=== PATIENT | female | born 1965 | race Caucasian/White ===

== ENCOUNTER 2017-06-12 14:11 | Outpatient (CLI) | payer BC ==
[2017-06-12 15:03] LABS: Hemoglobin 13.6 g/dL (12.0-16.0); Mean Corpuscular HGB CONC 33.5 g/dL (32.0-36.0); Mean Corpuscular Volume 89.5 fl (81.0-99.0); Mean Platelet Volume 7.6 fL (7.4-10.4); Platelet Count 286 thou/uL (130-400); RBC Distribution Width 11.3 % (11.5-14.5); Red Blood Cell (RBC) Count 4.54 mill/uL (4.20-5.40)
[2017-06-12 15:21] LABS: ALT (SGPT) 33 U/L (8-55); AST (SGOT) 23 U/L (5-34); Albumin 4.4 g/dL (3.5-5.0); Alkaline Phosphatase 41 U/L (40-150); Anion Gap 13 mmol/L (10-20); BUN (Urea Nitrogen) 17 mg/dL (9.8-20.1); Bilirubin, Total 1.7 mg/dL (0.2-1.2); Calc. Creatinine Clearance 0 mL/min (70-130); Calcium 9.5 mg/dL (7.8-10.44); Carbon Dioxide 25 mmol/L (22-29); Chloride 103 mmol/L (98-107); Estimated GFR-MDRD 88; Globulin 2.8 g/dL (2.4-3.5); Glucose 98 mg/dL (70-105); Protein, Total 7.2 g/dL (6.0-8.3); Sodium 137 mmol/L (136-145)
--- NOTE | 2017-06-12 20:27 | EKG ---
Test Reason : Blood Pressure : / mmHG Vent. Rate : 074 BPM Atrial Rate : 074 BPM P-R Int : 132 ms QRS Dur : 088 ms QT Int : 414 ms P-R-T Axes : 019 080 040 degrees QTc Int : 459 ms Poor data quality, interpretation may be adversely affected Normal sinus rhythm Normal ECG When compared with ECG of 03-FEB-2014 07:52, Questionable change in QRS axis T wave amplitude has decreased in Anterior leads Confirmed by AVERY EVANS, SMaría ([id number]) on 06/12/2017 8:27:03 PM Referred By: AMY Confirmed By:DR. Ana VARELA MD
== END 2017-06-12 14:12 | disposition home or self-care (01) ==
LOC: LABBT 14:11
PROVIDERS: ATTEND Neurological Surgery
DX: Z01.818 Encounter for other preprocedural examination (principal); M54.12 Radiculopathy, cervical region
CPT/HCPCS: 80053; 85027; 93005; 93010

== ENCOUNTER 2017-06-14 06:54 | Day surgery (SDC) | payer BC ==
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
[2017-06-12 14:39] VITALS: BMI 40.7
[2017-06-14] MEDS ORDERED: Midazolam HCl 2 mg/2 ml Vial ONE (07:00)
[2017-06-14] MEDS ORDERED: Fentanyl 250 MCG/5 ML VIAL ONE ×2 (07:00→09:38)
[2017-06-14] MEDS ORDERED: Thrombin 5000 UNITS/5 ML VIAL ONE (09:10)
[2017-06-14] MEDS ORDERED: Sodium Chloride 0.9% 10 ML ONE (09:10)
[2017-06-14] MEDS ORDERED: Clindamycin/D5W 900 mg/50 ml Premix Bag ONE (09:20)
[2017-06-14] MEDS ORDERED: CEFAZOLIN/Water 2 GM/20 ML SYRINGE ONE (09:22)
--- NOTE | 2017-06-14 10:42 | OP ---
DATE OF PROCEDURE: 06/14/2017 SURGEON: Kaveh Lantigua M.D. ENTRY LEVEL ACCOUNT EXECUTIVE: DASHAWN Carrera PROCEDURE: Anterior discectomy C5-6, interbody arthrodesis, intravertebral biomechanical device, loc al morselized autograft, demineralized bone matrix, anterior titanium instrumentation C5-6. PROCEDURE IN DETAIL: The patient was brought to the operating room and intubated. She was positione d supine, head in modest extension on a gel-filled donut. Incision was made in the right precervical area and dissecting medial to the sternocleidomastoid muscle we identified the anterior cervical spi ne and our level was confirmed by x-ray. We debrided anterior osteophytes, placed distraction across C5-6 and completely decompressed the intravertebral disc. The bony endplates were then decorticated for the purpose of arthrodesis and appropriately sized intravertebral biomechanical PEEK device was brought into the field, filled with demineralized bone matrix, local morselized autograft, and tapped into place securely at C5-6. Next, an anterior plate was brought into the field and secured to C5, and C6 using two 14 mm screws at each level. The wound was then extensively irrigated, immaculate he mostasis was secured, and the wound was closed in anatomic layers.
[2017-06-14] MEDS ORDERED: Fentanyl 100 MCG/2 ML VIAL ONE ×3 (11:00→11:33)
[2017-06-14] MEDS ORDERED: Ondansetron HCl/PF 4 MG/2 ML Vial ONE (11:56)
[2017-06-14] MEDS ORDERED: Promethazine HCl 25 MG/ML VIAL ONE (13:16)
== END 2017-06-14 14:40 | disposition home or self-care (01) ==
LOC: SDC 06:54
PROVIDERS: ATTEND Neurological Surgery
PROC: 0RB30ZZ Excision of Cervical Vertebral Disc, Open Approach (ICD-10-PCS; principal; 2017-06-14)
PROC: 0RG10A0 Fusion of Cervical Vertebral Joint with Interbody Fusion Device, Anterior Approach, Anterior Column, Open Approach (ICD-10-PCS; principal; 2017-06-14)
DX: M47.22 Other spondylosis with radiculopathy, cervical region (principal); M40.202 Unspecified kyphosis, cervical region; J32.0 Chronic maxillary sinusitis; Z79.899 Other long term (current) drug therapy; Z88.5 Allergy status to narcotic agent; Z88.8 Allergy status to other drugs, medicaments and biological substances
CPT/HCPCS: 76001; 96374; A4216; C1713; C1776; J2250; J2405; J2550; J3010; J3490

== ENCOUNTER 2017-07-02 15:57 | Outpatient (CLI) | payer BC ==
--- NOTE | 2017-07-02 16:43 | RAD ---
THREE VIEWS CERVICAL SPINE 07/02/17 COMPARISON: None. HISTORY: Neck surgery. Followup exam. FINDINGS: Three views of the cervical spine shows the patient to be status post anterior fusion of C5 and C6 wi th a plate and screws. A disc spacer is seen in the intervening disc space. No prevertebral soft tiss ue swelling is seen. The vertebral bodies demonstrate normal alignment without subluxation. IMPRESSION: Postsurgical changes of the cervical spine without evidence of complication. POS: [facility]
== END 2017-07-02 15:58 | disposition home or self-care (01) ==
LOC: TBSIIMAG 15:57
PROVIDERS: ATTEND Neurological Surgery
DX: M54.2 Cervicalgia (principal); Z98.1 Arthrodesis status
CPT/HCPCS: 72040

== ENCOUNTER 2017-08-20 12:49 | Outpatient (CLI) | payer BC ==
--- NOTE | 2017-08-20 14:48 | RAD ---
CERVICAL SPINE THREE VIEWS: Indications: Neck pain, follow up cervical spine surgery. Comparison: 07-02-17 FINDINGS: Anterior plate and screws again noted transfixing C5-6 with interbody implant which is unchanged in p osition. Posterior alignment is preserved. Vertebral body height is preserved. Disc spaces are otherw ise maintained. No interval change identified. IMPRESSION: Stable cervical spine findings. POS: [facility]
== END 2017-08-20 12:50 | disposition home or self-care (01) ==
LOC: TBSIIMAG 12:49
PROVIDERS: ATTEND Neurological Surgery
DX: M54.2 Cervicalgia (principal)
CPT/HCPCS: 72040

== ENCOUNTER 2018-04-08 09:30 | Emergency (ER) | payer BC ==
[2018-04-08] MEDS ORDERED: Famotidine/PF 20 mg/2ml Vial ONE (10:07)
[2018-04-08] MEDS ORDERED: methylPREDNISolone Sod Succ/PF 125 MG/2 ML VIAL ONE (10:07)
[2018-04-08] MEDS ORDERED: diphenhydrAMINE 50 MG/ML VIAL ONE (10:07)
== END 2018-04-08 11:06 | disposition home or self-care (01) ==
LOC: SCSER 09:30
DX: T78.40XA Allergy, unspecified, initial encounter (principal); I10 Essential (primary) hypertension
CPT/HCPCS: 96374; 96375; J1200; J2930; S0028

== ENCOUNTER 2018-11-25 15:25 | Outpatient (CLI) | payer BC, OTHER ==
[2018-11-25] MEDS ORDERED: ISOVUE-370 76%-LOCM 1 ML ONE (15:29)
--- NOTE | 2018-11-25 17:52 | CT ---
CT OF THE ABDOMEN AND PELVIS WITH CONTRAST: 11/25/18 HISTORY: Right sided abdominal pain for over a month with nausea and reflux. TECHNIQUE: Multiple contiguous axial images were obtained in a CT of the abdomen and pelvis with contrast. PO c ontrast was administered. Coronal reformats were performed. FINDINGS: The patient is status post cholecystectomy and hysterectomy. The liver, kidneys, adrenal glands, sple en, and pancreas are unremarkable. No free air, free fluid, or stranding changes are seen in the abdo men or pelvis. The large and small bowel are unremarkable. The appendix is normal. No abdominal or pelvic lymphadeno kimani are seen. Degenerative changes are seen in the spine. The visualized inferior thorax and abdominal wall soft ti ssues are unremarkable. IMPRESSION: No evidence of acute intra-abdominal/pelvic abnormality. POS: [facility]
== END 2018-11-25 15:26 | disposition home or self-care (01) ==
LOC: BICCT 15:25
PROVIDERS: ATTEND Family Medicine
DX: R10.13 Epigastric pain (principal)
CPT/HCPCS: 74177; Q9966

== ENCOUNTER 2019-12-18 12:38 | Outpatient (CLI) | payer BC ==
--- NOTE | 2019-12-18 15:45 | MRI ---
EXAM: MRI of the abdomen without and with contrast COMPARISON: CT abdomen/pelvis 11/25/2018 HISTORY: Right upper quadrant abdominal pain in the region where her gallbladder was present. Prior c holecystectomy. TECHNIQUE: Multiplanar multi sequence MR images were taken of the abdomen without and with IV contras t. An MRCP was performed. FINDINGS: Liver: There is diffuse loss of signal on out of phase images in the liver consistent with fatty infi ltration. No focal liver lesions are seen. No abnormal enhancement. Gallbladder: No filling defects or gallbladder wall thickening. Common bile duct: Normal caliber without filling defects Adrenal glands: Unremarkable. Kidneys: There is a subcentimeter nonenhancing focus of high T2 signal in the right kidney which like ly represents a cyst. No hydronephrosis or suspicious renal lesions. No abnormal areas of enhancement. Spleen: Unremarkable. Pancreas: Unremarkable. No abnormal enhancement. Retroperitoneum: No enlarged lymph nodes Bones: No marrow signal abnormality. IMPRESSION: 1. Fatty liver 2. Likely small right renal cyst 3. Normal biliary system.
== END 2019-12-18 12:39 | disposition home or self-care (01) ==
LOC: SCSMRI 12:38
PROVIDERS: ATTEND Internal Medicine Gastroenterology
DX: R10.13 Epigastric pain (principal); K76.0 Fatty (change of) liver, not elsewhere classified
CPT/HCPCS: 74183

== ENCOUNTER 2019-12-19 05:37 | Emergency (ER) | payer BC ==
[2019-12-19] MEDS ORDERED: Morphine 4 MG/ML VIAL ONE (05:56)
[2019-12-19] MEDS ORDERED: Ondansetron PF 4 MG/2 ML Vial ONE (05:56)
[2019-12-19 06:12] LABS: #Basophils 0.1 thou/uL (0.0-0.2); #Eosinphils 0.1 thou/uL (0.0-0.7); #Lymphocytes 2.4 thou/uL (1.20-3.40); #Monocytes 0.7 thou/uL (0.11-0.59); #Neutrophils 9.4 thou/uL (1.40-6.50); %Basophils 0.8 % (0.0-1.0); %Eosinophils 0.5 % (0.0-10.0); %Monocytes 5.5 % (0.0-10.0); %Neutrophils 74.2 % (42.0-75.0); Hemoglobin 15.3 g/dL (12.0-16.0); Mean Corpuscular HGB CONC 33.8 g/dL (32.0-36.0); Mean Corpuscular Hemoglobin 30.3 pg (27.0-31.0); Mean Corpuscular Volume 89.7 fL (78.0-98.0); Mean Platelet Volume 9.1 fL (7.4-10.4); Platelet Count 291 thou/uL (130-400); RBC Distribution Width 11.7 % (11.5-14.5); Red Blood Cell (RBC) Count 5.04 mill/uL (4.20-5.40); White Blood Cell (WBC) Count 12.7 thou/uL (4.8-10.8)
[2019-12-19 06:33] LABS: ALT (SGPT) 29 U/L (8-55); AST (SGOT) 21 U/L (5-34); Albumin 4.4 g/dL (3.5-5.0); Alkaline Phosphatase 41 U/L (40-110); Anion Gap 16 mmol/L (10-20); BUN (Urea Nitrogen) 10 mg/dL (9.8-20.1); Bilirubin, Total 1.5 mg/dL (0.2-1.2); Calc. Creatinine Clearance 0 mL/min (70-130); Calcium 9.3 mg/dL (7.8-10.44); Carbon Dioxide 22 mmol/L (22-29); Chloride 102 mmol/L (98-107); Estimated GFR-MDRD 66; Globulin 3.1 g/dL (2.4-3.5); Glucose 140 mg/dL (70-105); Lipase 31 U/L (8-78); Potassium 4.2 mmol/L (3.5-5.1); Protein, Total 7.5 g/dL (6.0-8.3); Sodium 136 mmol/L (136-145)
[2019-12-19] MEDS ORDERED: HYDROcodone/Acetaminophen 5/325 mg Tablet ONE (07:59)
[2019-12-19] MEDS ORDERED: Iopamidol-370 76% 500 ML 1 ML ONE (09:48)
--- NOTE | 2019-12-19 11:40 | CT ---
CT OF THE ABDOMEN AND PELVIS WITH IV CONTRAST: Date: 12/19/2019 INDICATION: History of lower abdominal pain and cramping. COMPARISON: Prior CT of the abdomen and pelvis with contrast dated 11/25/2018. MRI of the abdomen with and without contrast dated 12/18/2019. FINDINGS: Lung bases are clear. There is circumferential wall thickening involving the esophagus, which is denisse lar appearing, which may reflect mild esophagitis. There is fatty infiltration of the liver. The gallbladder is surgically absent. The pancreas, adrenal glands, and spleen appear within normal limits. No focal renal lesion is evident. No free fluid or enlarged lymph nodes are evident. The colon is largely decompressed with some apparent wall thickening. The appendix is normal in the r ight lower quadrant. The small bowel is normal in caliber. No free fluid is evident. Reproductive structures are surgically absent. Bladder is partially decompressed. No definite acute osseous abnormality is evident. IMPRESSION: 1. No definite acute abnormality. 2. Fatty liver. 3. Cholecystectomy. 4. Largely decompressed colon. Mild colitis cannot be entirely excluded based on the current imaging ; however, no overt pericolonic inflammatory stranding or drainable fluid collection is evident. 5. Normal appendix. POS: [facility]
== END 2019-12-19 08:11 | disposition home or self-care (01) ==
LOC: ERS 05:37
DX: K52.9 Noninfective gastroenteritis and colitis, unspecified (principal)
CPT/HCPCS: 36415; 74177; 80053; 83690; 85025; 93005; 96374; 96375; J2270; J2405; Q9967

== ENCOUNTER 2020-01-08 13:07 | Outpatient (CLI) | payer BC ==
[~2020-01-08 13:07] MED LIST: Iopamidol-370 76% 500 ML 1 ML ONE
--- NOTE | 2020-01-08 14:54 | CT ---
CT ANGIOGRAM OF THE ABDOMEN AND PELVIS WITH IV CONTRAST AND 3D POSTPROCESSIN01/08/20 HISTORY: Abdominal pain. FINDINGS: Comparison is made with a 12/19/19 exam. There is incomplete visualization of a 7 mm nodule in the lingula. There may be a similar small nodul e in the right middle lobe. Changes of cholecystectomy, fatty liver, and thickening of the wall of the distal esophagus are again seen. There are vascular calcifications without evidence of aneurysmal dilatation of the abdominal aorta. T he aorta is of normal caliber without intimal flap to suggest dissection. There is good flow in the r enal arteries, celiac axis, SMA and OLIVIA without significant stenosis. The pancreas, adrenal glands and kidneys are normal. No free air, free fluid or lymphadenopathy is se en. A normal appearing appendix is present. The patient is post hysterectomy. There are mild degenera tive change in the spine. IMPRESSION: Good flow in the celiac axis, SMA, OLIVIA and both renal arteries. No evidence of abdominal aortic aneur ysm or dissection. RECOMMENDATION: Evaluation of lung nodules with dedicated CT Chest is recommended. POS: [facility]
== END 2020-01-08 13:08 | disposition home or self-care (01) ==
LOC: BICCT 13:07
PROVIDERS: ATTEND Family Medicine
DX: R10.9 Unspecified abdominal pain (principal)
CPT/HCPCS: 74174; Q9967

== ENCOUNTER 2020-01-21 11:06 | Outpatient (CLI) | payer BC ==
--- NOTE | 2020-01-21 12:41 | CT ---
CT OF THE THORAX WITHOUT IV CONTRAST INDICATION: Follow-up pulmonary nodule. COMPARISON: CTA of the abdomen and pelvis dated January 08, 2020, CT the abdomen and pelvis dated Nov, November 25, 2018 and October 29, 2014. FINDINGS: LUNGS: There is a 7 mm pulmonary nodule within the inferior lingula. There is a 6 mm pulmonary nodule within the anterior segment of the right upper lobe on image 31 of series 3, near the right minor fissure. An additional 5 mm pulmonary nodule is seen within the right upper lobe on image 31 of serie s 3. There are 2 separate 3 mm pulmonary nodules within the apical posterior segment of the left upper lobe. Pleural spaces: Clear Lymph nodes: There is prominent bulky mediastinal and hilar adenopathy. One of the larger lymph nodes within the mediastinum is seen within the right tracheobronchial region measuring 2.2 cm. There is a subcarinal lymph measuring 3.1 cm. No axillary lymphadenopathy or upper abdominal lymphadenopathy i s evident Heart and great vessels: There are mild vascular consultations involving the thoracic aorta. Heart si ze appears within normal limits. There are mild mitral annular calcifications. Upper abdomen: There is fatty infiltration of the liver. There is prominent wall thickening involving the distal esophagus which is stable. There is a paraesophageal lymph node measuring 1.2 cm. Osseous structures: No acute osseous abnormality. IMPRESSION: 1. Persistent wall thickening involving the distal esophagus with a prominent distal paraesophageal l ymph node. There is additional bulky lymph nodes seen within the mediastinum both hilar regions. Recommend correlation with endoscopy as soft tissue malignancy with lymph node spread is of concern. 2. Bilateral pulmonary nodules are nonspecific and may be inflammatory in etiology; however, in light of the findings related to the distal esophagus, metastatic disease is not excluded. 3. Fatty liver
== END 2020-01-21 11:07 | disposition home or self-care (01) ==
LOC: SCSCT 11:06
PROVIDERS: ATTEND Family Medicine
DX: R91.8 Other nonspecific abnormal finding of lung field (principal); K22.8 Other specified diseases of esophagus; R59.0 Localized enlarged lymph nodes; K76.0 Fatty (change of) liver, not elsewhere classified
CPT/HCPCS: 71250

== ENCOUNTER 2020-03-01 13:10 | Outpatient (CLI) | payer BC ==
--- NOTE | 2020-03-02 18:50 | MMO ---
Bilateral MAMMO Bilat Screen [facility]. CLINICAL HISTORY: Patient is 54 years old and is seen for screening. The patient has the following family history of breast cancer: cousin female, at age 53, malignant (generic) and maternal aunt, at age 68, malignant (generic). The patient has no personal history of cancer. VIEWS: The views performed were: bilateral craniocaudal with tomosynthesis and bilateral mediolateral oblique with tomosynthesis. FILMS COMPARED: The present examination has been compared to prior imaging studies performed at 01/15/2015. This study has been interpreted with the assistance of computer-aided detection. MAMMOGRAM FINDINGS: There are scattered fibroglandular densities. There are no suspicious masses, suspicious calcifications, or new areas of architectural distortion. IMPRESSION: THERE IS NO MAMMOGRAPHIC EVIDENCE OF MALIGNANCY. A ROUTINE FOLLOW-UP MAMMOGRAM IN 1 YEAR IS RECOMMENDED. THE RESULTS OF THIS EXAM WERE SENT TO THE PATIENT. ACR BI-RADS Category 1 - Negative MAMMOGRAPHY NOTE: 1. A negative mammogram report should not delay a biopsy if a dominant of clinically suspicious mass is present. 2. Approximately 10% to 15% of breast cancers are not detected by mammography. 3. Adenosis and dense breasts may obscure an underlying neoplasm. Reported by: PRINCE RAMIRES MD Electonically Signed: [id number]
== END 2020-03-01 13:11 | disposition home or self-care (01) ==
LOC: BICMAMMO 13:10
PROVIDERS: ATTEND Family Medicine
DX: Z12.31 Encounter for screening mammogram for malignant neoplasm of breast (principal); Z80.3 Family history of malignant neoplasm of breast
CPT/HCPCS: 77063; 77067

== ENCOUNTER 2020-03-04 06:10 | Day surgery (SDC) | payer BC ==
[2020-03-03 12:04] VITALS: BMI 38.2
[2020-03-03 13:16] LABS: SARS-CoV-2 MS2 Positive; SARS-CoV-2 N Gene Negative; SARS-CoV-2 S Gene Negative; SARS-CoV-2 by NAA Not Detected (NotDetected); SARS-CoV-2 orf1ab Negative
[2020-03-04] MEDS ORDERED: Fentanyl 100 MCG/2 ML VIAL ONE ×2 (06:31→08:43)
[2020-03-04] MEDS ORDERED: EPINEPHrine 1 MG/ML AMP ONE (06:43)
[2020-03-04] MEDS ORDERED: Bupivacaine PF 0.5% 30 ML VIAL ONE (06:43)
--- NOTE | 2020-03-04 08:28 | OP ---
DATE OF PROCEDURE: 03/04/2020 PREOPERATIVE DIAGNOSIS: Bulky mediastinal adenopathy. POSTOPERATIVE DIAGNOSIS: Bulky mediastinal adenopathy. PROCEDURE PERFORMED: Cervical mediastinoscopy with biopsy of level 7 lymph nodes. ANESTHESIA: General endotracheal, Dr. Katy Calabrese. ESTIMATED BLOOD LOSS: Minimal. DRAINS: None. SPECIMENS: Level 7 lymph node for culture and routine pathology and flow cytometry. DESCRIPTION OF PROCEDURE: After consent was obtained, the patient was brought to the operating room and placed in supine position on the operating room table. Appropriate central line and monitors were placed, and general endotracheal anesthesia was induced. Neck and chest were prepped and draped in usual sterile fashion. Her previous cervical laminectomy incision was extended across the midline. Dissection down through the platysma and between the strap muscles was obtained with electrocautery. Anterior tracheal fascia was incised. Blunt dissection was used to enter the mediastinum. Mediastinoscope was inserted and passed down to the distal trachea. Large mediastinal nodes were noted and multiple biopsies were taken and sent for above studies. Hemostasis was ensured. Platysma was then reapproximated with 2-0 Vicryl suture and skin was closed with a subcuticular stitch. The patient tolerated the procedure well, was awakened, extubated, and transferred to the recovery room in stable condition. Needle, sponge, and instrument counts were all reported as correct at the end of the procedure. Job ID: [id number]
[2020-03-04] MEDS ORDERED: Ondansetron PF 4 MG/2 ML Vial ONE ×2 (08:40→10:28)
[2020-03-04] MEDS ORDERED: Ondansetron ODT 4 MG TAB ONE (10:19)
[2020-03-04] MEDS ORDERED: Lidocaine 1% PF 5 ML VIAL ONE (10:28)
[2020-03-04] MEDS ORDERED: PROPOFOL 200 MG/20 ML VIAL ONE (10:28)
[2020-03-04] MEDS ORDERED: Dexamethasone 20 MG/5 ML VIAL ONE (10:28)
[2020-03-04] MEDS ORDERED: Rocuronium Bromide 10 MG/ML (10ML VIAL) ONE (10:28)
[2020-03-04] MEDS ORDERED: Glycopyrrolate 0.2 MG/ML 5 ML SYRINGE ONE (10:28)
[2020-03-04] MEDS ORDERED: Ketorolac Tromethamine 30 MG/ML VIAL ONE (10:28)
[2020-03-04] MEDS ORDERED: PHENYLEPHRINE-NS 100 MCG/ML 10 ML SYRINGE ONE (10:28)
[2020-03-07 13:13] LABS: Fungus Stain Final report (.)
== END 2020-03-04 11:20 | disposition home or self-care (01) ==
LOC: SDC 06:10 → EDSTATUS 15:00
PROVIDERS: ATTEND Thoracic Surgery (Cardiothoracic Vascular Surgery)
PROC: 07B74ZX Excision of Thorax Lymphatic, Percutaneous Endoscopic Approach, Diagnostic (ICD-10-PCS; principal; 2020-03-04)
DX: R59.0 Localized enlarged lymph nodes (principal); G43.909 Migraine, unspecified, not intractable, without status migrainosus; Z79.899 Other long term (current) drug therapy; Z88.1 Allergy status to other antibiotic agents; Z88.5 Allergy status to narcotic agent; Z88.8 Allergy status to other drugs, medicaments and biological substances
CPT/HCPCS: 87070; 87102; 87116; 87205; 87206; 87635; 88184; 88307; 88312; J0171; J0690; J1100; J1885; J2405; J2704; J3010; Q0162; S0020; U0003